=== PATIENT | female | born 1965 | race Two or more races ===

== ENCOUNTER 2024-01-04 10:11 | Inpatient (IN) | payer OTHER ==
[~2024-01-04] VITALS: Ht 154.9 cm; Wt 70.5 kg
[2024-01-04 10:53] VITALS: PULSE 90; RESP 16; O2SAT 99
[2024-01-04 10:59] LABS: Basophils # (auto) 0 10 ^3/uL (0-0.2); Basophils % (auto) 0.7 % (0.0-2.0); Eosinophils # (auto) 0.2 10 ^3/uL (0-0.8); Eosinophils % (auto) 5.3 % (0.0-7.0); Hematocrit 36.6 % (36.0-46.0); Hemoglobin 11.8 g/dL (12.2-16.2); Lymphocytes # (auto) 1.4 10 ^3/uL (0.4-5.4); Lymphocytes % (auto) 30.8 % (10.0-50.0); Mean Corpuscular Hemoglobin 25.6 pg (28.0-32.0); Mean Corpuscular Hgb Conc. 32.3 g/dL (32.0-36.0); Mean Corpuscular Volume 79.3 fL (80.0-100.0); Monocytes # (auto) 0.4 10 ^3/uL (0-1.3); Monocytes % (auto) 8.7 % (0.0-12.0); Neutrophils # (auto) 2.5 10 ^3/uL (1.6-8.6); Neutrophils % (auto) 54.5 % (37.0-80.0); Red Blood Cells 4.62 10^6/uL (4.0-5.20); Red Cell Distribution Width 15.7 % (11.8-14.3); White Blood Cell 4.5 10^3/uL (4.4-10.8)
[2024-01-04 11:03] LABS: Chloride 110 mmol/L (98-107); Potassium 3.5 mmol/L (3.5-5.1); Sodium 142 mmol/L (136-145)
[2024-01-04 11:04] LABS: Anion Gap 4 (5-15); Calcium 9.5 mg/dL (8.7-10.4); Carbon Dioxide 28 mmol/L (20-30)
[2024-01-04 11:09] LABS: BUN/Creatinine Ratio 17.8 (10.0-20.0); Blood Urea Nitrogen 13 mg/dL (9-23); Glucose 82 mg/dL (74-106)
[2024-01-04 11:30] LABS: Erythrocyte Sedimentation Rate 8 mm/hr (0-20)
[2024-01-04] MEDS: CLINDAMYCIN 600MG IV 50 ML IV ONE (13:17)
[2024-01-04] MEDS ORDERED: DOCUSATE SOD 100 MG CAP PO PRN (14:30)
[2024-01-04] MEDS ORDERED: HYDROcodone-ACET 5/325MG TAB PO PRN (14:30)
[2024-01-04] MEDS ORDERED: ONDANSETRON HCL 4 MG/2 ML VIAL IV PRN (14:30)
[2024-01-04] MEDS: SODIUM CHLORIDE 0.9% 1,000 ML IV SCH (15:09)
[2024-01-04] MEDS ORDERED: NITROGLYCERIN 0.4 MG SL TAB SL PRN (16:00)
[2024-01-04] MEDS ORDERED: MORPHINE SULFATE INJ 2 MG/ml SYRG IV PRN (16:00)
[2024-01-04 17:10] VITALS: BP 167/100; PULSE 65; RESP 17; TEMP 97.8; O2SAT 99
[2024-01-04] MEDS: hydrALAZINE HCL 20 MG/ML VL IV PRN (18:26)
[2024-01-04 21:00] VITALS: BP 126/76; PULSE 116; RESP 18; TEMP 98.7; O2SAT 96
[2024-01-04] MEDS: CLINDAMYCIN 300MG IV 50 ML IV SCH (21:11)
[2024-01-05 01:00] VITALS: BP 137/91; PULSE 82; RESP 19; TEMP 98.2; O2SAT 96
[2024-01-05] MEDS: ACETAMINOPHEN 325 MG TAB PO PRN (01:03)
[2024-01-05 05:00] VITALS: BP 118/80; PULSE 79; RESP 18; TEMP 98.3; O2SAT 95
[2024-01-05 05:56] LABS: Basophils # (auto) 0 10 ^3/uL (0-0.2); Basophils % (auto) 0.5 % (0.0-2.0); Eosinophils # (auto) 0.2 10 ^3/uL (0-0.8); Eosinophils % (auto) 3.4 % (0.0-7.0); Hematocrit 36.8 % (36.0-46.0); Hemoglobin 12.3 g/dL (12.2-16.2); Lymphocytes # (auto) 1.1 10 ^3/uL (0.4-5.4); Lymphocytes % (auto) 20.7 % (10.0-50.0); Mean Corpuscular Hemoglobin 26.2 pg (28.0-32.0); Mean Corpuscular Hgb Conc. 33.6 g/dL (32.0-36.0); Mean Corpuscular Volume 77.9 fL (80.0-100.0); Monocytes # (auto) 0.3 10 ^3/uL (0-1.3); Monocytes % (auto) 5.3 % (0.0-12.0); Neutrophils # (auto) 3.9 10 ^3/uL (1.6-8.6); Neutrophils % (auto) 70.1 % (37.0-80.0); Red Blood Cells 4.72 10^6/uL (4.0-5.20); Red Cell Distribution Width 15.4 % (11.8-14.3); White Blood Cell 5.5 10^3/uL (4.4-10.8)
[2024-01-05 06:16] LABS: Alanine Aminotransferase 33 U/L (7-40); Alkaline Phosphatase 101 U/L (46-116); Anion Gap 8 (5-15); Aspartate Aminotransferase 24 U/L (13-40); Bilirubin, Total 0.6 mg/dL (0.2-1.0); Blood Urea Nitrogen 9 mg/dL (9-23); Calcium 9.4 mg/dL (8.7-10.4); Carbon Dioxide 23 mmol/L (20-30); Chloride 109 mmol/L (98-107); Glucose 109 mg/dL (74-106); Potassium 3.9 mmol/L (3.5-5.1); Sodium 140 mmol/L (136-145); Total Protein 6.5 g/dL (5.7-8.2)
[2024-01-05 09:00] VITALS: BP 115/79; PULSE 87; RESP 18; TEMP 97.8; O2SAT 95
[2024-01-05] MEDS: ENOXAPARIN SOD 40 MG/0.4 ML SYRINGE SC SCH (09:23)
[2024-01-05 13:00] VITALS: BP 135/88; PULSE 74; RESP 18; TEMP 98.6; O2SAT 94
[2024-01-05 13:41] LABS: Triglycerides 55 mg/dL (< 150)
[2024-01-05 13:42] LABS: LDL Cholesterol 102 mg/dL (< 100)
[2024-01-05 13:43] LABS: Cholesterol 150 mg/dL (< 200); HDL Cholesterol 45 mg/dL (40-59)
[2024-01-05] MEDS ORDERED: LISINOPRIL 5 MG TAB PO ONE (14:15)
[2024-01-05 16:27] VITALS: BP 150/99; PULSE 83; RESP 16; TEMP 98; O2SAT 99
[2024-01-05] MEDS ORDERED: LISI20TA56 PO (16:34)
[2024-01-05 18:52] VITALS: BP 161/100; TEMP 36.7
== END 2024-01-05 19:30 | disposition home or self-care (01) | DRG 603 ==
LOC: ER 10:11 → OVERFLOW 15:51 → WEST WING 16:58
PROVIDERS: ADMIT Internal Medicine Pulmonary Disease; ATTEND Internal Medicine Pulmonary Disease
DX: L03.115 Cellulitis of right lower limb (principal); I16.0 Hypertensive urgency; L03.116 Cellulitis of left lower limb; E78.5 Hyperlipidemia, unspecified; R73.03 Prediabetes; Z83.3 Family history of diabetes mellitus; Z79.899 Other long term (current) drug therapy
CPT/HCPCS: 36415; 70450; 71046; 80048; 80053; 80061; 83036; 83880; 84443; 85025; 85652; 96365; G0378; J3490